=== PATIENT | male | born 1985 | race Caucasian/White ===

== ENCOUNTER 2018-11-26 00:55 | Emergency (ER) | payer MEDICAID, OTHER ==
[~2018-11-26] VITALS: Wt 65.9 kg
[2018-11-26] MEDS ORDERED: METHOCARBAMOL 750 MG TAB PO ONE (02:30)
[2018-11-26] MEDS ORDERED: IBUPROFEN 800 MG TAB PO ONE (02:30)
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
[2018-11-26] MEDS ORDERED: IBUP800T48 PO (03:08)
[2018-11-26] MEDS ORDERED: METH750T93 PO (03:08)
[2018-11-26 03:25] VITALS: BP 130/78; PULSE 98; RESP 18
== END 2018-11-26 03:26 | disposition home or self-care (01) ==
LOC: FTE 00:55
DX: M25.561 Pain in right knee (principal); R40.2412 Glasgow coma scale score 13-15, at arrival to emergency department; F17.210 Nicotine dependence, cigarettes, uncomplicated
CPT/HCPCS: 73564; Z7502; Z7610